=== PATIENT | female | born 1975 | race Hispanic/Latino ===

== ENCOUNTER 2017-08-20 00:12 | Emergency (ER) | payer OTHER ==
[2017-08-20 00:30] VITALS: O2SAT 99
[2017-08-20] MEDS ORDERED: Sodium Chloride 0.9% 1,000 ML IV STA (00:53)
--- NOTE | 2017-08-20 01:02 | ED PDOC ---
Syncope/Near Syncope/Dizziness Time Seen by Provider: 08/20/17 00:23 Chief Complaint (Nursing): Dizziness/Lightheaded Chief Complaint (Provider): Dizziness and vomiting History Per: Patient History/Exam Limitations: no limitations Onset/Duration Of Symptoms: Days (x4) Current Symptoms Are (Timing): Still Present Fall Associated With With Symptoms: Yes, No Injury As Result Of Fall Additional Complaint(s): Citlali is a 41 y/o female who was brought to the ED for evaluation of dizziness with vomiting for 4 days. Patient reports that she suddenly lost her balance and fell down this evening, prompting to bring her here. There was no head trauma or loss of consciousness. She has also experienced a sharp shooting pain at her right neck/posterior to the right ear, for which she is taking Advil with some relief. No headache, vision loss, fever, abdominal pain, or chest pain. Of note, patient was diagnosed with a chiari malformation found incidentally on MRI 2 years ago, and had a repeat MRI within the last year. No neurosurgical intervention was recommended. Patient is concerned that she could have a brain tumor. She has had similar episodes of dizziness in the past, but none as severe as this. PMD: Provider TBD Past Medical History Reviewed: Historical Data, Nursing Documentation, Vital Signs Vital Signs: Last Vital Signs Temp 98 F 08/20/17 00:27 Pulse 116 H 08/20/17 00:27 Resp 17 08/20/17 00:27 BP 158/119 H 08/20/17 00:27 Pulse Ox 99 08/20/17 00:27 - Medical History PMH: No Chronic Diseases Other PMH: Chiari malformation on MRI - Surgical History Surgical History: Appendectomy, - Family History Family History: States: Unknown Family Hx - Allergies Allergies/Adverse Reactions: Allergies Allergy/AdvReac Type Severity Reaction Status Date / Time No Known Allergies Allergy Verified 08/20/17 00:30 Review of Systems ROS Statement: Except As Marked, All Systems Reviewed And Found Negative Constitutional: Negative for: Weakness Eyes: Negative for: Vision Change Cardiovascular: Negative for: Chest Pain Gastrointestinal: Positive for: Nausea, Vomiting. Negative for: Abdominal Pain , Diarrhea Musculoskeletal: Positive for: Neck Pain (Right-sided) Neurological: Positive for: Dizziness. Negative for: Headache Physical Exam - Reviewed Nursing Documentation Reviewed: Yes Vital Signs Reviewed: Yes - Physical Exam Appears: Positive for: No Acute Distress, Uncomfortable Head Exam: Positive for: ATRAUMATIC, NORMOCEPHALIC Skin: Positive for: Normal Color, Warm, Dry Eye Exam: Positive for: Normal appearance, EOMI, PERRL Neck: Positive for: Normal, Painless ROM, Supple Cardiovascular/Chest: Positive for: Regular Rate, Rhythm. Negative for: Murmur Respiratory: Positive for: Normal Breath Sounds. Negative for: Respiratory Distress Gastrointestinal/Abdominal: Positive for: Normal Exam, Soft. Negative for: Tenderness Back: Positive for: Normal Inspection. Negative for: L CVA Tenderness, R CVA Tenderness, Vertebral Tenderness Extremity: Positive for: Normal ROM. 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 Negative for: Motor/Sensory Deficits , Aphasia, Facial Droop - Laboratory Results Result Diagrams: 08/20/17 01:10 08/20/17 01:10 - ECG O2 Sat by Pulse Oximetry: 99 (RA) Pulse Ox Interpretation: Normal Medical Decision Making Medical Decision Making: Initial Impression: Dizziness with vomiting Differentials include: peripheral vertigo, central vertigo. Will r/o brain tumor. Time: 00:52 Initial Plan: --EKG --CMP --Alcohol serum --Troponin I --CBC --Urine --Urine dipstick --Ativan 1 mg IV --NS IV 1000 ml at 1000 mls/hr --Zofran 4 mg IV --Pending CT Head w/o contrast Time: 01:54 CT Head w/o contrast: FINDINGS: Brain: No significant white matter disease. No hemorrhage. Ventricles: Unremarkable. No ventriculomegaly. Bones/joints: Unremarkable. No acute fracture. Soft tissues: Unremarkable. Sinuses: Unremarkable as visualized. No acute sinusitis. Mastoid air cells: Unremarkable as visualized. No mastoid effusion. IMPRESSION: No acute findings. Labs reviewed, and are grossly normal. Blood alcohol level is 171. Time: 02:44 --Patient requesting to go home. Reports improvement in symptoms, and is medically stable for discharge. Clinical Impression: Vomiting, Alcohol intoxication, Dizziness Upon provider reevaluation patient is medically stable, and requires no further treatment in the ED at this time. Patient will be discharged home. Counseling was provided and all questions were answered regarding diagnosis and need for follow up with PCP in 2-3 days. There is agreement to discharge plan. Return if symptoms persist or worsen. Scribe Attestation: Documented by Milvia Vasquez, acting as a scribe for Sandrine Chaves MD Provider Scribe Attestation: All medical record entries made by the Scribe were at my direction and personally dictated by me. I have reviewed the chart and agree that the record accurately reflects my personal performance of the history, physical exam, medical decision making, and the department course for this patient. I have also personally directed, reviewed, and agree with the discharge instructions and disposition. Disposition - Clinical Impression Clinical Impression: Vomiting, Dizziness, Alcohol intoxication - Patient ED Disposition Is Patient to be Admitted: No Counseled Patient/Family Regarding: Studies Performed, Diagnosis, Need For Followup - Disposition Referrals: Filiberto Wills MD [Staff Provider] - Disposition: Routine/Home Disposition Time: 02:45 Condition: GOOD Additional Instructions: Follow up with your PCP in 2-3 days. Instructions: Alcohol Intoxication (GEN), Acute Nausea and Vomiting (ED)
[2017-08-20 01:35] LABS: BASO # 0.1 K/uL (0.0-0.2); BASO % 0.6 % (0.0-2.0); EOS # 0.2 K/uL (0.0-0.7); EOS % 2.4 % (0.0-4.0); HEMATOCRIT 39.5 % (34.0-47.0); LYMPH % 33.9 % (20.0-40.0); MEAN CELL VOLUME 88.7 fl (81.0-99.0); MEAN CORPUSCULAR HEMOGLOBIN 29.3 pg (27.0-31.0); MEAN PLATELET VOLUME 8.3 fl (7.2-11.7); MONO # 0.4 K/uL (0.0-0.8); MONO % 4.8 % (0.0-10.0); NEUT # 5.1 K/uL (1.8-7.0); NEUT % 58.3 % (50.0-75.0); NRBC % 0.1 % (0.0-0.0); RED CELL DISTRIBUTION WIDTH 13.4 % (11.5-14.5); WHITE BLOOD COUNT 8.8 K/uL (4.8-10.8)
[2017-08-20 01:42] LABS: ALB/GLOB RATIO 1.5 (1.0-2.1); ALCOHOL SERUM 171 mg/dl (0-10); ALKALINE PHOSPHATASE 64 U/L (38-126); ALT/SGPT 23 U/L (9-52); AST/SGOT 24 U/L (14-36); BILIRUBIN,TOTAL 0.2 mg/dl (0.2-1.3); BLOOD UREA NITROGEN 14 mg/dl (7-17); CALCIUM 9.8 mg/dL (8.4-10.2); CARBON DIOXIDE 22 mmol/L (22-30); CHLORIDE 110 mmol/L (98-107); GFR AFRICAN-AMERICAN > 60; GLUCOSE,RANDOM 97 mg/dL (65-105); POTASSIUM 3.7 MMOL/L (3.6-5.0); SODIUM 149 mmol/l (132-148); TOTAL PROTEIN 8.1 G/DL (6.3-8.2)
[2017-08-20 03:31] VITALS: PULSE 82; RESP 16
[2017-08-20 03:32] VITALS: BP 131/82; TEMP 98
--- NOTE | 2017-08-20 07:25 | CARD ---
APPROVED REPORT EKG Measurement Heart [id number] <Conclusion> Normal sinus rhythm Normal ECG
--- NOTE | 2017-08-20 08:58 | CT ---
PROCEDURE: CT HEAD WITHOUT CONTRAST. HISTORY: dizziness COMPARISON: None available. TECHNIQUE: Axial computed tomography images were obtained through the head/brain without intravenous contrast. Radiation dose: Total exam DLP = 1066.05 mGy-cm. This CT exam was performed using one or more of the following dose reduction techniques: Automated exposure control, adjustment of the mA and/or kV according to patient size, and/or use of iterative reconstruction technique. FINDINGS: HEMORRHAGE: No intracranial hemorrhage. BRAIN: No mass effect or edema. No atrophy or chronic microvascular ischemic changes. VENTRICLES: Unremarkable. No hydrocephalus. CALVARIUM: Unremarkable. PARANASAL SINUSES: Unremarkable as visualized. No significant inflammatory changes. MASTOID AIR CELLS: Unremarkable as visualized. No inflammatory changes. OTHER FINDINGS: None. IMPRESSION: Normal CT of the Head.
== END 2017-08-20 02:54 | disposition home or self-care (01) ==
LOC: H.ER 00:12
DX: F10.129 Alcohol abuse with intoxication, unspecified (principal); R42 Dizziness and giddiness; R11.10 Vomiting, unspecified
CPT/HCPCS: 70450; 80053; 80320; 81025; 84484; 85025; 93005; 96360; 99284; J2060; J2405; J7040